=== PATIENT | female | born 1940 | race Caucasian/White ===

== ENCOUNTER → 2016-12-09 | Outpatient (CLI) | payer MEDICARE, OTHER ==
[~2016-12-09] MED LIST: ACETAMINOPHEN PO; ACTOPLUS MET; ANEXSIA 7.5/3251 TA1 PO; ASPIRINEC PO; ATENOLOL PO; AZO CRANBERRY; CALCIUM + D 6001 TA1 PO; CENTRUM SILVER PO; EVISTA60 MG PO; LORTAB 7.5-5001 TAB PO; PRAVASTATIN SOD40 MG PO; VITAMIN D 4001 UDTAB PO; ZESTRIL10 M2 PO; ZESTRIL2.5 MG PO
--- NOTE | ~2016-12-09 | MY29 ---
[facility] A Service of [facility] & [facility] RADIOLOGY TEXT RESULTS PATIENT: MARGARET VASQUEZ LOCATION: [facility] : 38 UNIT #: [id number] AGE: [address]: ETHAN THOMAS DO SEX: F ORDER DR: [id number] [facility] [address] [place], [place] [address] [id number] O MR#: [id number] #: [id number] NAME: MARGARET VASQUEZ : 1940 SEX: F STUDY DATE/TIME: 12/09/2016 14:47 UNIT: [facility] ROOM: STUDY DESCRIPTION: MY RICHA SCREENING W/ CAD BILAT Attending Physician: Ethan Thomas D.O. Ordering Physician: Ethan Thomas D.O. Primary Care Physician: Ethan Thomas D.O. MEDICAL IMAGING REPORT This report is preliminary unless electronic signature is present EXAM Digital screening mammogram 12/09/2016. HISTORY A 76-year-old woman, no risk elevation. Annual screening COMPARISON STUDIES Mammograms date to 10/10/2005 with most recent 12/07/2015. FINDINGS Digital imaging of each breast was completed utilizing screening protocol. Review includes FDA-approved CAD device. Breast parenchyma is moderately dense and heterogeneous with a small nodular pattern in each breast. Occasional benign calcification noted bilaterally. I see no suspicious mass. There are no interval occurring microcalcifications and no architectural deformity. IMPRESSION Stable benign mammogram. Annual screening recommended. BIRADS II Patients over the age of 40 are entered into a reminder system with target due date for the next mammogram. A result letter will also be sent to the patient. BIRADS: 2 Benign Finding Dictated by... Mitul Flowers M.D. THIS IS AN ELECTRONICALLY VERIFIED REPORT Mitul Flowers M.D. at 12/12/2016 8:08 AM [facility] A Service of [facility] & [facility] RADIOLOGY TEXT RESULTS PATIENT: MARGARET VASQUEZ LOCATION: [facility] : 38 UNIT #: [id number] AGE: [address]: ETHAN THOMAS DO SEX: F ORDER DR: Erick TD: 12/09/2016 20:08 JOB #: [id number] MEDICAL IMAGING REPORT Page 1 of 1 COPY
== END | disposition home or self-care (01) ==
LOC: CWCC 14:22
DX: Z12.31 Encounter for screening mammogram for malignant neoplasm of breast (principal)
CPT/HCPCS: G0202